=== PATIENT | male | born 1965 | race Caucasian/White ===

== ENCOUNTER → 2023-08-28 15:51 | Outpatient (REF) | payer BC, SELFPAY | LOC: RAD 15:51 | PROVIDERS: ATTENDING PHYSICIAN Internal Medicine Rheumatology; FAMILY PHYSICIAN Family Medicine | DX: M47.819 Spondylosis without myelopathy or radiculopathy, site unspecified (principal) | CPT/HCPCS: 72100; 72202 ==

== ENCOUNTER → 2024-12-22 12:30 | Outpatient (REF) | payer BC, SELFPAY | LOC: PAVMRI 12:30 | PROVIDERS: ATTENDING PHYSICIAN Physician Assistant Surgical; FAMILY PHYSICIAN Family Medicine | DX: M25.552 Pain in left hip (principal) | CPT/HCPCS: 73718; 73721 ==

== ENCOUNTER 2025-02-11 17:04 | Emergency (ER) | payer BC, SELFPAY ==
[2025-02-11 17:10] VITALS: BP 124/86
[2025-02-11 17:23] LABS: Hematocrit 38.8 % (39.0-52.0); Hemoglobin 13.1 g/dL (13.0-18.0); Mean Corp Hgb Conc. 33.8 g/dL (33.0-37.0); Mean Corpuscular Volume 89.8 fL (80.0-94.0); Nucleated Red Blood Cells % 0 % (-); Platelet Count 234 10^3/uL (130-400); Red Cell Dist. Width 12.3 % (11.5-14.5)
[2025-02-11 17:32] LABS: INR 1.02; PT 13.7 Sec (11.4-14.6)
[2025-02-11 17:47] LABS: ALT (SGPT) 24 U/L (0-50); AST (SGOT) 34 U/L (17-59); Albumin 4.6 g/dl (3.5-5.0); Alkaline Phosphatase 60 U/L (38-126); Blood Urea Nitrogen 16 mg/dl (9-20); Calcium 8.8 mg/dl (8.4-10.2); Carbon Dioxide 29 mmol/L (22-30); Chloride 100 mmol/L (98-107); Glucose 106 mg/dl (70-99); Potassium 3.9 mmol/L (3.5-5.1); Sodium 136 mmol/L (135-145); Total Protein 7.0 g/dl (6.3-8.2); eGFR > 60.00
[2025-02-11 17:58] LABS: Troponin I < 0.012 ng/ml
--- NOTE | 2025-02-11 18:38 | ED.GENMED ---
History of Present Illness
<Daktoah Wilson, DO - Last Filed: 02/11/25 19:14>
General
Chief Complaint: Cardiac Symptoms
Source: patient
Exam Limitations: none
Time Seen by Provider: 02/11/25 18:37
Nursing documentation reviewed up to this point in time: agreed with
History of Present Illness
History of Present Illness:
Note:
CHIEF COMPLAINT(S)
Chest discomfort
HISTORY OF PRESENT ILLNESS
The patient is a 59-year-old male who presents with complaints of chest discomfort which began at approximately 4:00 PM while he was at work. He describes the sensation as sharp and reports that it lasted for about 15 to 20 seconds. The discomfort
was accompanied by a feeling of weakness and not feeling himself. Post-event, he still felt somewhat off, reporting a sense of not being entirely mentally clear. He denies any previous history of similar episodes.
The patient has a family history of heart disease, noting that his father had a heart attack in his late 50s. He has previously been seen by cardiology and has undergone a stress test with normal results.
PAST MEDICAL AND SURGICAL HISTORY
The patient has a history of ulcerative colitis, for which he is taking mesalamine, and ankylosing spondylitis, for which he uses indomethacin. He has undergone sinus surgery and has been evaluated for a mass discovered on an MRI that was found to
be non-concerning after further investigation.
SOCIAL HISTORY
The patient occasionally consumes alcohol and denies smoking or using recreational drugs. He has a history of a family with significant heart disease.
MEDICATIONS
- Mesalamine for ulcerative colitis
- Indomethacin for ankylosing spondylitis
PHYSICAL EXAM
- Nursing notes reviewed and vital signs reviewed.
- Cardiovascular exam: Normal heart sounds, no murmurs detected.
- Respiratory exam: Lungs clear to auscultation.
- Neurological exam: The patient is alert and oriented.
PLAN
The plan includes obtaining another set of cardiac enzymes at 9:00 PM to rule out myocardial infarction. The ECG and initial blood work were normal, and the patients symptoms are not highly suggestive of an acute cardiac event. The differentials
considered for the chest discomfort are musculoskeletal pain, gastroesophageal reflux disease, or referred pain associated with ankylosing spondylitis. The patient will be monitored until the follow-up lab results are obtained, and further
management will be determined based on these results.
DIFFERENTIAL DIAGNOSIS
The differential diagnosis includes, in no particular order and is not limited to:
1. Acute coronary syndrome
2. Musculoskeletal pain
3. Gastroesophageal reflux disease
4. Costochondritis
5. Aortic dissection
6. Pulmonary embolism
7. Pneumothorax
8. Anxiety or panic attack
9. Pericarditis
10. Esophageal spasm
Note:
CARE-UPDATE
02/11/25 - 19:11
Patient exhibits normal KG and normal troponin levels, suggesting a low suspicion for ACS or PE. Plan to repeat troponin tests. If results remain negative, discharge patient with instructions to follow up with carburetor repairer, Dr. Abreu.
EKG
My independent EKG interpretation is:
- Time of EKG: [not specified in the textbook associate]
- Rhythm: Sinus rhythm
- Heart rate: 51 bpm
- NJ interval: Normal
- QRS duration: Normal
- QT interval: Normal
- [place]: Normal
- Abnormalities: None observed
Disposition:
SUMMARY OF ENCOUNTER
The patient is a 59-year-old male who presented to the emergency department with a complaint of sharp chest discomfort that started while at work. The discomfort lasted for about 15 to 20 seconds and was accompanied by a general feeling of weakness
and mental cloudiness. Given the patients family history of heart disease, he underwent an evaluation to rule out acute coronary syndrome. Initial ECG and cardiac enzyme tests were normal, suggesting a low suspicion for acute cardiac events. The
consideration was made for musculoskeletal pain, gastroesophageal reflux disease, or referred pain related to ankylosing spondylitis as possible causes for his symptoms. The decision was made to observe and reassess the patients cardiac enzymes
later in the evening.
DISPOSITION
Discharge
PLAN
The plan includes obtaining a follow-up set of cardiac enzymes to rule out myocardial infarction. Given the normal ECG and initial blood work, the likelihood of an acute cardiac event is minimal. The patient is to be monitored until lab results are
available. Should results remain negative, the patient will be discharged with instructions to follow up with his carburetor repairer, Dr. Abreu. Continued monitoring for symptoms of chest discomfort is advised, and the patient should seek medical
attention if symptoms worsen.
INDEPENDENT REVIEW OF LABS AND INTERPRETATION OF TESTS
My independent review of the EKG is: Sinus rhythm, heart rate of 51 bpm, normal NJ, QRS, QT intervals, and normal axis with no abnormalities observed.
MEDICAL DECISION MAKING
-Complexity of Data Reviewed: Chronic conditions affecting care include ulcerative colitis and ankylosing spondylitis. Differential diagnoses considered include acute coronary syndrome, musculoskeletal pain, gastroesophageal reflux disease,
costochondritis, aortic dissection, pulmonary embolism, pneumothorax, anxiety or panic attack, pericarditis, and esophageal spasm.
-Data:
Category 1
Clinical information is obtained from the patients external medical records, which include previous cardiology evaluations and stress test results.
Category 2
My independent interpretation of the EKG shows normal results with sinus rhythm and no observed abnormalities.
-Risk:
Consideration of Admission/Observation: Escalation of care including admission/observation was considered given the complexity and risk of the patients presenting complaint, exam findings, and underlying comorbidities. However, ultimately I feel the
patient is safe for outpatient management with close follow-up. Reasoning: Work-up was reassuring, does not reveal any acute life/organ-threatening processes, patients symptoms were well controlled upon reevaluation, reexamination is reassuring,
vitals are stable, patient is agreeable with discharge, and is reliable for follow-up.
DIAGNOSIS
Chest Pain, Unspecified (R07.9)
Observation for Suspected Cardiac Conditions (Z03.4)
Past History
Linnealt;Dakotah Wilson, DO - Last Filed: 02/11/25 19:14>
Past History
ED Past Medical History: Other (Ulcerative colitis)
ED Past Surgical History: Orthopedic
Social History
Tobacco: Non-smoker
Alcohol: Occasional
Personal:
Living: with family
Employment: Employed
Family History
Family History: Other (Noncontributory)
Phy Exam
<Tomasz Mckenzie MD - Last Filed: 02/11/25 21:42>
Physical Exam
Physical Exam:
.
Course
<Dakotah Wilson DO - Last Filed: 02/11/25 19:14>
Orders/Labs/Results
Orders:
Orders
02/11/25 17:04
EKG [Electrocardiogram (*1)] Urgent
Reason for Study: Chest Pain
02/11/25 17:05
EKG- Treatment ONCE
02/11/25 17:16
Prothrombin Time Urgent
02/11/25 17:17
Complete Blood Count/With Diff Urgent
Comprehensive Metabolic Panel Urgent
Troponin I Urgent
02/11/25 20:23
Troponin I Urgent
Abnormal Lab Results
02/11/25
17:17
RBC 4.32 L 10^6/uL
(4.70-6.10)
Hct 38.8 L %
(39.0-52.0)
Absolute Monos (auto) 0.9 H 10^3/uL
(0.1-0.6)
Monocytes % 10.4 H %
(1.7-9.3)
Glucose 106 H mg/dl
(70-99)
02/11/25 17:17
02/11/25 17:17
Vital Signs
Initial and Last Documented VS:
Initial Vital Signs
Temp Pulse Resp BP Pulse Ox
36.7 C 61 17 124/86 99
02/11/25 17:10 02/11/25 17:10 02/11/25 17:10 02/11/25 17:10 02/11/25 17:10
Last Documented Vital Signs
Temp Pulse Resp BP Pulse Ox
36.7 C 57 16 115/73 98
02/11/25 17:10 02/11/25 20:45 02/11/25 20:45 02/11/25 20:00 02/11/25 20:45
<Tomasz Mckenzie MD - Last Filed: 02/11/25 21:42>
Orders/Labs/Results
Orders:
Orders
02/11/25 17:04
EKG [Electrocardiogram (*1)] Urgent
Reason for Study: Chest Pain
02/11/25 17:05
EKG- Treatment ONCE
02/11/25 17:16
Prothrombin Time Urgent
02/11/25 17:17
Complete Blood Count/With Diff Urgent
Comprehensive Metabolic Panel Urgent
Troponin I Urgent
02/11/25 20:23
Troponin I Urgent
Abnormal Lab Results
02/11/25
17:17
RBC 4.32 L 10^6/uL
(4.70-6.10)
Hct 38.8 L %
(39.0-52.0)
Absolute Monos (auto) 0.9 H 10^3/uL
(0.1-0.6)
Monocytes % 10.4 H %
(1.7-9.3)
Glucose 106 H mg/dl
(70-99)
02/11/25 17:17
02/11/25 17:17
Vital Signs
Initial and Last Documented VS:
Initial Vital Signs
Temp Pulse Resp BP Pulse Ox
36.7 C 61 17 124/86 99
02/11/25 17:10 02/11/25 17:10 02/11/25 17:10 02/11/25 17:10 02/11/25 17:10
Last Documented Vital Signs
Temp Pulse Resp BP Pulse Ox
36.7 C 57 16 115/73 98
02/11/25 17:10 02/11/25 20:45 02/11/25 20:45 02/11/25 20:00 02/11/25 20:45
<Dakotah Wilson DO - Last Filed: 02/11/25 19:14>
*Pulse Oximetry
SaO2: 99
Oxygen Mode of Delivery: Room air
<Tomasz Mckenzie MD - Last Filed: 02/11/25 21:42>
*Pulse Oximetry
Patient hypoxic: no
*Critical Care Note
Total Time (30-74mins, 75-104mins- exclusive of procedures): Not Applicable
<Tomasz Mckenzie MD - Last Filed: 02/11/25 21:42>
Update Note
Update Note:
UPDATE (Tomasz Mckenzie MD)
I have seen and evaluated the patient after signout and reviewed all labs and imaging.
Focused HPI: 59-year-old male with history as noted presents for evaluation after an episode of chest pain. He says that he had chest discomfort associated with generalized weakness earlier this evening while he was sitting in his desk doing work.
Symptoms seem to have resolved. No exertional symptoms noted. He does have family history of heart disease and sees Dr. Abreu.
Physical exam: Vital signs normal. Awake alert no distress. No cardiac rubs Murmurs. Lungs Sound Clear.
Medical Decision Makin-year-old male presents for evaluation of nonexertional atypical chest pain that has since resolved. He had no acute ischemic changes on his EKG. CBC and CMP unremarkable. Serial troponins undetectable. Stable for
discharge. Spoke about follow-up plan and return precautions. All questions answered.
ED Attending Note
<Dakotah Wilson DO - Last Filed: 02/11/25 19:14>
-
Portions of this chart may have been created with voice recognition software.� Occasional wrong word or��sound alike� substitutions may have occurred due to the inherent limitations of voice recognition software.
Discharge Plan
Departure
Patient with high blood pressure during this ER visit?: Yes
Condition: Good
Discharge Problem:
Chest pain
Instructions: Chest Pain (DC), BLOOD PRESSURE
Prescriptions:
No Action
mesalamine [Canasa] 1,000 MG suppository
1,000 mg NJ .3 X A WK
Vitamin D3:
1,000 mcg PO DAILY
meclizine 25 MG tablet
25 mg PO QIDPRN PRN (Reason: dizziness or nausea) Qty: 20 0RF
ondansetron 4 MG tablet,disintegrating
4 mg PO TIDPRN PRN (Reason: nausea/vomiting) Qty: 12 0RF
Referrals:
Calista Woods MD [Family Provider, Family Practice]
Marcelino Abreu MD [Active, Cardiology] - Call in 1-3 days for appt
Interventions
Interventions:
*Risk Screen - Suicide Last Done: 02/11/25 17:12
*General Assessment Last Done: 02/11/25 17:12
*Neglect/Abuse Screening Last Done: 02/11/25 17:12
*ED COVID-19 Vaccine History Last Done: 02/11/25 17:12
ED- Pulmonary Assessment Last Done: 02/11/25 19:03
ED- Cardiac Assessment Last Done: 02/11/25 19:03
Discharge Date and Time
Print Language: LAO
[2025-02-11 19:00] VITALS: BP 109/77
[2025-02-11 19:03] VITALS: BMI 25.7
[2025-02-11 20:00] VITALS: BP 115/73
[2025-02-11 21:00] VITALS: BP 113/78
[2025-02-11 21:15] LABS: Troponin I < 0.012 ng/ml
== END 2025-02-11 21:50 | disposition home or self-care (01) ==
LOC: EMR 17:04
PROVIDERS: EMERGENCY PHYSICIAN Emergency Medicine; FAMILY PHYSICIAN Family Medicine
DX: R07.89 Other chest pain (principal); Z82.49 Family history of ischemic heart disease and other diseases of the circulatory system
CPT/HCPCS: 99283; 80053; 84484; 85025; 85610; 93005

== ENCOUNTER → 2025-03-17 08:59 | Outpatient (REF) | payer BC, SELFPAY | LOC: RCS 08:59 | PROVIDERS: ATTENDING PHYSICIAN Nurse Practitioner; FAMILY PHYSICIAN Family Medicine | DX: R07.9 Chest pain, unspecified (principal) | CPT/HCPCS: 93017 ==

== ENCOUNTER → 2025-04-23 07:38 | Outpatient (REF) | payer BC, SELFPAY | LOC: EMG 07:38 | PROVIDERS: ATTENDING PHYSICIAN Orthopaedic Surgery Hand Surgery; FAMILY PHYSICIAN Family Medicine | DX: M25.522 Pain in left elbow (principal); R20.0 Anesthesia of skin | CPT/HCPCS: 95886; 95910 ==

== ENCOUNTER → 2025-05-02 07:03 | Outpatient (REF) | payer BC, SELFPAY ==
[2025-05-02 08:20] LABS: Hematocrit 43.2 % (39.0-52.0); Hemoglobin 14.4 g/dL (13.0-18.0); Mean Corp Hgb Conc. 33.3 g/dL (33.0-37.0); Mean Corpuscular Volume 93.3 fL (80.0-94.0); Nucleated Red Blood Cells % 0 % (-); Platelet Count 244 10^3/uL (130-400); Red Cell Dist. Width 12.3 % (11.5-14.5)
[2025-05-02 08:44] LABS: Blood Urea Nitrogen 17 mg/dl (9-20); Calcium 9.2 mg/dl (8.4-10.2); Carbon Dioxide 31 mmol/L (22-30); Chloride 105 mmol/L (98-107); Glucose 94 mg/dl (70-99); Potassium 4.2 mmol/L (3.5-5.1); Sodium 141 mmol/L (135-145); eGFR > 60.00
== END ==
LOC: RCS 07:03
PROVIDERS: ATTENDING PHYSICIAN Orthopaedic Surgery Hand Surgery; FAMILY PHYSICIAN Family Medicine
DX: Z01.818 Encounter for other preprocedural examination (principal)
CPT/HCPCS: 36415; 80048; 85025; 93005